=== PATIENT | female | born 1980 | race Caucasian/White ===

== ENCOUNTER 2020-05-02 22:11 | Inpatient (IN) | payer OTHER ==
[~2020-05-02] VITALS: Ht 158 cm; Wt 100.0 kg
[2020-05-02 22:53] LABS: BILIRUBIN NEGATIVE (NEGATIVE); BLOOD 2+ Ery/uL (NEGATIVE); CLARITY CLEAR (CLEAR); COLOR YELLOW (YELLOW); GLUCOSE (U) NORMAL (NORMAL); LEUKOCYTES NEGATIVE Leu/uL (NEGATIVE); NITRITE NEGATIVE (NEGATIVE); PROTEIN NEGATIVE (NEGATIVE); SPECIFIC GRAVITY 1.025 (1.001-1.030); UROBILINOGEN 0.2 mg/dL (0.2-1.0)
[2020-05-02 23:03] LABS: BACTERIA TRACE; SQUAMOUS EPITHELIAL CELLS RARE; URINARY RBC RARE
[2020-05-02 23:06] LABS: BASOPHIL 0.4 % (0-2); EOSINOPHIL 0 % (0-5); HCT 42.2 % (37.0-47.0); HGB 13.9 g/dl (12.5-16.0); LYMPHOCYTE 5.7 % (15-48); MCH 28.9 pg (25.0-31.0); MCHC 32.9 g/dL (32.0-36.0); MCV 87.7 fL (78.0-100.0); MONOCYTE 5.2 % (0-12); MPV 10.6 fL (6.0-9.5); NEUTROPHIL 88.2 % (41-80); NRBC 0; PLT 320 K/uL (150-400); RBC 4.81 M/uL (4.20-5.40); WBC 22.3 K/uL (4.0-10.5)
[2020-05-02 23:22] LABS: ALBUMIN 3.5 g/dL (3.4-5.0); BILIRUBIN - TOTAL 0.4 mg/dL (0.2-1.0); BUN/CREAT RATIO (CALC) 15.6 RATIO; CREATININE 0.77 mg/dL (0.51-0.95); GLOBULIN (CALCULATION) 3.8 g/dL; POTASSIUM 4.2 mmol/L (3.5-5.1); TOTAL PROTEIN 7.3 g/dL (6.4-8.2)
[2020-05-03] MEDS ORDERED: ALLEGRA ALLERG180 MG PO (01:51)
[2020-05-03] MEDS ORDERED: SYNTHROID137 MCG PO (01:51)
[2020-05-03] MEDS ORDERED: ASCORBIC ACID500 MG PO (01:53)
[2020-05-03] MEDS ORDERED: VITAMIN D3125 MC1 PO (01:53)
[2020-05-03 09:46] LABS: HCG (URINE) SCREEN NEGATIVE (NEGATIVE)
[2020-05-04] MEDS ORDERED: LEVAQUIN750 MG PO (10:29)
[2020-05-04] MEDS ORDERED: METRONIDAZOLE500 MG PO (10:29)
[2020-05-04] MEDS ORDERED: PERCOCET 5-3251 EACH PO (10:29)
[2020-05-04] MEDS ORDERED: DIFLUCAN150 MG PO (10:31)
[2020-05-04] MEDS ORDERED: CULTURELLE1 EACH PO (10:34)
== END 2020-05-04 12:12 | disposition home or self-care (01) | DRG 343 ==
LOC: FER 22:11 → FMS 05-03 00:17
PROVIDERS: Anesthesiology; Emergency Medicine; ADMIT Surgery
PROC: 0DTJ4ZZ Resection of Appendix, Percutaneous Endoscopic Approach (ICD-10-PCS; principal; 2020-05-03 09:00)
DX: K35.80 Unspecified acute appendicitis (principal); E66.9 Obesity, unspecified; E03.9 Hypothyroidism, unspecified; Z90.49 Acquired absence of other specified parts of digestive tract; Z88.1 Allergy status to other antibiotic agents; Z88.0 Allergy status to penicillin; Z88.6 Allergy status to analgesic agent; Z20.822 Contact with and (suspected) exposure to COVID-19
CPT/HCPCS: 36415; 80053; 81001; 84703; 85025; 87040; C9113; G0378; J1100; J1170; J1885; J1956; J2250; J2405; J2710; J3010; J7030; J7120; Q9967; U0002